=== PATIENT | male | born 1955 | race Caucasian/White ===

== ENCOUNTER 2017-08-16 02:16 | Inpatient (IN) | payer BC ==
[2017-08-16] VITALS (26 sets, daily range): BP systolic 102–142; BP diastolic 59–90
[~2017-08-16] VITALS: Ht 182.9 cm; Wt 125.6 kg
[2017-08-16] MEDS ORDERED: PRAM0.258 PO (04:37)
[2017-08-16] MEDS ORDERED: ASPI-1197 PO (04:37)
[2017-08-16] MEDS ORDERED: TICA60TA PO (04:37)
[2017-08-16] MEDS ORDERED: NILO150C PO (04:37)
[2017-08-16] MEDS ORDERED: SIMV20TA6 PO (04:37)
[2017-08-16] MEDS ORDERED: MULT-1203 PO (04:37)
[2017-08-16] MEDS ORDERED: FLUT16H NASAL (04:37)
[2017-08-16] MEDS ORDERED: KRIL1CAP31 PO (04:37)
[2017-08-16] MEDS ORDERED: LISI1TAB11 PO (04:37)
[2017-08-16 05:15] LABS: CREATINE KINASE MB 1.3 ng/mL (0.5-3.6); TROPONIN I 0.06 ng/mL (0.00-0.06)
[2017-08-16] MEDS ORDERED: POTASSIUM CHLORIDE 10% ELIXIR 20 MEQ/15 ML UDCUP PO PRN (05:15)
[2017-08-16] MEDS ORDERED: LIDOCAINE HCL-MPF 1% 2ML VIAL IVP PRN (05:15)
[2017-08-16] MEDS ORDERED: POTASSIUM CHLORIDE 20MEQ/100ML 100 ML IV PRN (05:15)
[2017-08-16 06:25] LABS: BASOPHILS % (AUTO) 0.6 % (0.0-5.0); EOSINOPHILS % (AUTO) 0.2 % (0.0-8.0); HEMATOCRIT 38.8 % (42-54); LYMPHOCYTES % (AUTO) 11.1 % (21.0-51.0); MEAN CORPUSCULAR HEMOGLOBIN 28.1 pg (27.0-33.0); MEAN CORPUSCULAR HGB CONC 33.2 g/dL (32.0-36.0); MEAN CORPUSCULAR VOLUME 84.7 fL (79-99); MONOCYTES % (AUTO) 8.2 % (3.0-13.0); NEUTROPHILS % (AUTO) 79.9 % (40.0-77.0); PLATELET COUNT (AUTO) 270 K/uL (130-400); RED BLOOD CELL COUNT(AUTO) 4.58 MIL/uL (4.50-6.20); WHITE BLOOD COUNT (AUTO) 14.2 K/uL (4.8-10.8)
[2017-08-16 06:31] LABS: INR 0.96 (0.85-1.15); PARTIAL THROMBOPLASTIN TIME 23.9 SEC (26.3-35.5); PROTHROMBIN TIME 10.1 SEC (9.6-11.6)
[2017-08-16 06:59] LABS: B-TYPE NATRIURETIC PEPTIDE 69 pg/mL (0-100)
[2017-08-16 07:01] LABS: CREATININE 1.2 mg/dL (0.5-1.5); MAGNESIUM 1.9 mg/dL (1.80-2.40); PHOSPHORUS 3.3 mg/dL (2.5-4.9); POTASSIUM 4.6 mmol/L (3.5-5.1)
[2017-08-16 07:13] LABS: HEMOGLOBIN A1C 7.4 % (4.0-6.0)
[2017-08-16] MEDS ORDERED: GLUCAGON 1MG KIT 1 MG ML IM PRN (07:30)
[2017-08-16] MEDS ORDERED: ONDANSETRON HCL 4 MG/2 ML VIAL IVP PRN (07:30)
[2017-08-16] MEDS ORDERED: LACTULOSE 20 GM/30 ML UDCUP PO PRN (07:30)
[2017-08-16] MEDS ORDERED: IPRATROPIUM/ALBUTEROL SULFATE 3 ML SOLUTION IH PRN (07:30)
[2017-08-16] MEDS ORDERED: MORPHINE SULFATE 2 MG/ML 1ML SYG IVP PRN ×2 (07:30)
[2017-08-16] MEDS ORDERED: DEXTROSE 50%-WATER 50 ML DISP.SYRIN IV PRN (07:30)
[2017-08-16] MEDS ORDERED: HYDRALAZINE HCL 20 MG/ML VIAL IV PRN (07:30)
[2017-08-16] MEDS ORDERED: ACETAMINOPHEN 325 MG TAB PO PRN (07:30)
[2017-08-16] MEDS ORDERED: MAGNESIUM 2GM PREMIX 50ML 50 ML IV SCH (07:45)
[2017-08-16] MEDS ORDERED: MAGNESIUM 2GM PREMIX 50ML 50 ML IV ONE (07:46)
[2017-08-16] MEDS: INSULIN HUMULIN R 100 UNIT/ML 3ML SQ SCH ×4 (08:30→20:55)
[2017-08-16] MEDS: ASPIRIN 81MG TAB.CHEW PO SCH (08:33)
[2017-08-16] MEDS: FAMOTIDINE 20MG TAB 20 MG TAB PO SCH ×2 (08:33→21:08)
[2017-08-16] MEDS: TICAGRELOR 90 MG TABLET PO SCH ×2 (09:00→21:08)
[2017-08-16] MEDS ORDERED: TICAGRELOR 90 MG TABLET PO SCH (09:30)
[2017-08-16] MEDS: METOPROLOL TARTRATE 25 MG TAB PO SCH ×3 (09:34→22:28)
[2017-08-16] MEDS ORDERED: DIPHENHYDRAMINE HCL 25 MG CAPSULE PO SCH (13:00)
[2017-08-17] VITALS (16 sets, daily range): BP systolic 111–141; BP diastolic 56–89
[2017-08-17 04:04] LABS: HEMATOCRIT 38.9 % (42-54); MEAN CORPUSCULAR HEMOGLOBIN 28.6 pg (27.0-33.0); MEAN CORPUSCULAR HGB CONC 33.7 g/dL (32.0-36.0); MEAN CORPUSCULAR VOLUME 84.9 fL (79-99); PLATELET COUNT (AUTO) 267 K/uL (130-400); RED BLOOD CELL COUNT(AUTO) 4.58 MIL/uL (4.50-6.20); RED CELL DISTRIBUTION WIDTH 14.2 % (11.0-15.5)
[2017-08-17 04:23] LABS: CREATININE 1.1 mg/dL (0.5-1.5); POTASSIUM 3.8 mmol/L (3.5-5.1)
[2017-08-17] MEDS: POTASSIUM CHLORIDE 20 MEQ ERTAB PO PRN ×2 (04:32→06:10)
[2017-08-17] MEDS: INSULIN HUMULIN R 100 UNIT/ML 3ML SQ SCH ×4 (06:14→21:00)
[2017-08-17] MEDS: ASPIRIN 81MG TAB.CHEW PO SCH (08:43)
[2017-08-17] MEDS: TICAGRELOR 90 MG TABLET PO SCH ×2 (08:43→20:41)
[2017-08-17] MEDS: METOPROLOL TARTRATE 25 MG TAB PO SCH ×2 (08:43→20:41)
[2017-08-17] MEDS: FAMOTIDINE 20MG TAB 20 MG TAB PO SCH (08:43)
[2017-08-18 04:06] VITALS: BP 128/73
[2017-08-18 04:14] LABS: CREATININE 0.9 mg/dL (0.5-1.5); POTASSIUM 4.1 mmol/L (3.5-5.1)
[2017-08-18] MEDS: INSULIN HUMULIN R 100 UNIT/ML 3ML SQ SCH ×4 (06:01→20:31)
[2017-08-18 07:37] VITALS: BP 120/75
[2017-08-18] MEDS: TICAGRELOR 90 MG TABLET PO SCH ×2 (08:46→21:10)
[2017-08-18] MEDS: ASPIRIN 81MG TAB.CHEW PO SCH (08:46)
[2017-08-18] MEDS: METOPROLOL TARTRATE 25 MG TAB PO SCH ×2 (08:46→23:49)
[2017-08-18] MEDS ORDERED: AMIODARONE HCL 200 MG TABLET PO SCH (10:45)
[2017-08-18] MEDS ORDERED: AMIODARONE HCL 200 MG TABLET PO ONE (11:00)
[2017-08-18 11:11] VITALS: BP 111/83
[2017-08-18 16:10] VITALS: BP 132/64
[2017-08-18 19:28] VITALS: BP 121/58
[2017-08-18 23:31] VITALS: BP 112/63
[2017-08-19 03:43] VITALS: BP 118/78
[2017-08-19 04:05] LABS: POTASSIUM 3.7 mmol/L (3.5-5.1)
[2017-08-19] MEDS ORDERED: POTASSIUM CHLORIDE 10 MEQ/TAB.SA PO ONE ×2 (04:23)
[2017-08-19] MEDS: INSULIN HUMULIN R 100 UNIT/ML 3ML SQ SCH ×2 (06:34→11:30)
[2017-08-19] MEDS ORDERED: AMIO400T4 PO (07:19)
[2017-08-19 07:29] VITALS: BP 129/77
[2017-08-19] MEDS ORDERED: AMIODARONE HCL 200 MG TABLET PO SCH (08:15)
[2017-08-19] MEDS: TICAGRELOR 90 MG TABLET PO SCH (10:38)
[2017-08-19] MEDS: METOPROLOL TARTRATE 25 MG TAB PO SCH (10:38)
[2017-08-19] MEDS: ASPIRIN 81MG TAB.CHEW PO SCH (10:38)
== END 2017-08-19 13:26 | disposition home or self-care (01) | DRG 309 ==
LOC: EDHIP 03:16 → 2CH 03:33 → 2DH 08-17 13:28
PROVIDERS: ADMIT Family Medicine; ATTEND Family Medicine
DX: I47.1 Supraventricular tachycardia (principal); C92.11 Chronic myeloid leukemia, BCR/ABL-positive, in remission; I49.01 Ventricular fibrillation; Z95.1 Presence of aortocoronary bypass graft; E11.9 Type 2 diabetes mellitus without complications; K21.9 Gastro-esophageal reflux disease without esophagitis; I48.0 Paroxysmal atrial fibrillation; I47.2 Ventricular tachycardia; E66.9 Obesity, unspecified; Z68.37 Body mass index [BMI] 37.0-37.9, adult; E78.5 Hyperlipidemia, unspecified; G47.33 Obstructive sleep apnea (adult) (pediatric); I10 Essential (primary) hypertension; M48.061 Spinal stenosis, lumbar region without neurogenic claudication; I25.10 Atherosclerotic heart disease of native coronary artery without angina pectoris; I25.2 Old myocardial infarction; Z95.5 Presence of coronary angioplasty implant and graft; Z79.82 Long term (current) use of aspirin; Z98.49 Cataract extraction status, unspecified eye
CPT/HCPCS: 36415; 80048; 80061; 82550; 82553; 82948; 83036; 83735; 83874; 83880; 84100; 84484; 85025; 85027; 85610; 85730; 93005; 93306; 94664; J1815; J3475; J3480; J3490; Q0163